=== PATIENT | female | born 1965 | race Caucasian/White ===

== ENCOUNTER 2018-01-24 21:59 | Observation (INO) ==
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
--- NOTE | 2018-01-25 02:24 | CT ---
EXAM DATE: 01/25/2018 2:05 AM EDT AGE/SEX: 52 years / Female INDICATIONS: Increasing right sided vision loss. Patient states floaters are larger and less translu cent. CLINICAL DATA: This is the patient's initial encounter. Patient reports that signs and symptoms have been present for 1 day and indicates a pain score of 3/10. MEDICAL/SURGICAL HISTORY: None. section. RADIATION DOSE: 56.35 CTDI (mGy) COMPARISON: No prior exams available for comparison. TECHNIQUE: CT of the head without contrast. Using automated exposure control and adjustment of the mA and/or kV according to patient size, radiation dose was kept as low as reasonably achievable to ob tain optimal diagnostic quality images. DICOM format image data is available electronically for revi ew and comparison. FINDINGS: The patient's head is canted in the gantry creating asymmetries. Cerebrum: The ventricles are normal for age. No evidence of midline shift, mass lesion, hemorrhage or acute infarction. No extraaxial fluid collections are seen. Posterior Fossa: The cerebellum and brainstem are intact. The 4th ventricle is midline. The cerebe llopontine angle is unremarkable. Extracranial: The visualized portion of the orbits is intact. Skull: The calvaria is intact. No evidence of skull fracture. CONCLUSION: 1. Negative noncontrast CT brain. . Electronically signed by: Shreyas Al MD 01/25/2018 2:23 AM EDT
[2018-01-25 08:16] VITALS: RESP 16; TEMP 98.5
[2018-01-25 11:50] VITALS: BP 134/82; PULSE 59; O2SAT 100
--- NOTE | 2018-01-25 14:35 | P.CON ---
History of Present Illness Service: Ophthalmology Reason for Consult: right eye vision loss Primary Care Provider: No Primary Care Physician History of Present Illness: 52 yo F who presented to ED yesterday night c/o 1 month history of progressive peripheral vision loss in her right eye. Patient says that it started off as a dark spot on the right nasal part of the peripheral vision. It is now slowly encroaching more towards the mid line. Patient went to see [facility] urgent care doctor yesterday who suggested she go to the ED. No significant ocular history. PMFSH - History History Provided By: Patient - Medical History Medical History: Medical History (Last Reviewed 01/25/18 @ 04:09 by Tom Zarate MD) delivery delivered Patient denies medical problems - Tobacco History Second Hand Smoke Exposure: No Smoking Status: Never smoker Tobacco Type: Cigarettes - Alcohol History How Often Do You Have a Drink Containing Alcohol: 2 to 4 times a month - Substance Use History Substance History: No History of Abuse - Travel History Recent Travel in the [facility] Within the Last 8 Weeks: No Recent Travel Out of the Country Within the Last 8 Weeks: No - Immunization History Tetanus Immunization: Unsure Medications and Allergies Active Medications: Active Medications Tramadol HCl (Ultram) 50 mg PO Q6H PRN PRN Reason: PAIN 3-10 Allergies Allergy/AdvReac Type Severity Reaction Status Date / Time strawberry Allergy Rash Verified 01/24/18 22:51 Home Medications Medication Instructions Recorded Confirmed Type No Known Home Medications 01/25/18 01/25/18 History Physical Exam Vital signs: Vital Signs 01/24/18 22:49 01/25/18 06:16 01/25/18 08:00 Temperature 98.3 F 98.2 F 98.5 F Pulse Rate 72 63 16 L Respiratory Rate 21 14 16 Blood Pressure 150/66 H 120/58 L 149/75 H Pulse Oximetry 99 99 98 01/25/18 11:48 Temperature 98.5 F Pulse Rate 59 L Respiratory Rate 16 Blood Pressure 134/82 Pulse Oximetry 100 Intake & Output 01/24/18 01/25/18 01/25/18 18:59 06:59 18:59 Weight 116.573 kg Other: Date of Last Bowel Movement 01/24/18 - Detailed Eye Exam Comments: Va cc at near OD 20/200, OS 20/60 EOM full OU, no diplopia CVF full OS, nasal defect OD Pupils 2-1 no APD OU IOP normal to palpation OU Anterior exam OD - normal eyelid, C/S W&Q, K clear, AC deep, pupil round, lens clear OS - normal eyelid, C/S W&Q, K clear, AC deep, pupil round, lens clear Dilated exam OD - ON s/p/f, ves normal, vit clear, temporal retinal detachment from 6 to 12 encroaching on macula OS - ON s/p/f, ves normal, vit clear, retina flat Assessment and Plan - Assessment (1) Retinal detachment, right Code(s): H33.21 - Serous retinal detachment, right eye Status: Acute Plan: Partial macula off retinal detachment that has been present for at least 1 month. I will call [facility] on Saturday morning to set up an appointment with a Retina specialist who can evaluate her and schedule her for surgery.
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
== END 2018-01-25 16:05 | disposition home or self-care (01) ==
LOC: NEPC 21:59 → NEDA 21:59 → NEPFCDU 01-25 06:08
PROVIDERS: ADMIT Hospitalist; ATTEND Hospitalist
DX: H33.21 Serous retinal detachment, right eye